=== PATIENT | female | born 1970 | race African-American/Black ===

== ENCOUNTER 2018-01-15 19:34 | Inpatient (IN) | payer OTHER, MEDICAID ==
[~2018-01-15] VITALS: Ht 165.1 cm; Wt 144.5 kg
[~2018-01-15 19:34] MED LIST: CYCL5TAB; HYDR-2595; TRIA25CA PO; [UNRECOGNIZED DRUG - OTHER] PO
[2018-01-15 21:27] LABS: Basophils # (auto) 0.1 uL; Eosinophils # (auto) 0 uL; Eosinophils % (auto) 0.2 % (0.0-7.0); Hematocrit 42.9 % (36.0-46.0); Hemoglobin 14.4 g/dL (12.2-16.2); Lymphocytes # (auto) 1.8 uL; Lymphocytes % (auto) 20.9 % (10.0-50.0); Mean Corpuscular Hemoglobin 30.3 pg (28.0-32.0); Mean Corpuscular Hgb Conc. 33.6 g/dL (32.0-36.0); Mean Corpuscular Volume 90.1 fL (80.0-100.0); Monocytes # (auto) 0.4 uL; Monocytes % (auto) 4.8 % (0.0-12.0); Neutrophils # (auto) 6.3 uL; Neutrophils % (auto) 73.1 % (37.0-80.0); Nucleated Red Blood Cells % 0.1 %; Platelet Count (auto) 331 10^3/uL (140-450); Red Blood Cells 4.76 10^6/uL (4.0-5.20); Red Cell Distribution Width 13.5 % (11.8-14.3); White Blood Cell 8.6 10^3/uL (4.4-10.8)
[2018-01-15 21:39] LABS: Alanine Aminotransferase 43 U/L (13-56); Albumin 3.5 g/dL (3.4-5.0); Anion Gap 9 (5-15); Aspartate Aminotransferase 23 U/L (15-37); BUN/Creatinine Ratio 9.7; Blood Urea Nitrogen 7 mg/dL (7-18); Calcium 8.9 mg/dL (8.5-10.1); Carbon Dioxide 25 mmol/L (21-32); Chloride 104 mmol/L (98-107); GFR African American 112 mL/min; GFR Non-African American 92 mL/min; Glucose 102 mg/dL (74-106); Magnesium 1.9 mg/dL (1.6-2.6); Potassium 4.3 mmol/L (3.5-5.1); Sodium 138 mmol/L (136-145)
[2018-01-15 21:44] LABS: Alkaline Phosphatase 79 U/L (45-117); Bilirubin, Total 0.7 mg/dL (0.2-1.0)
[2018-01-15 21:53] LABS: INR 0.95 (0.9-1.15); Partial Thromboplastin Time 34.1 sec (23.78-33.04); Prothrombin Time 10.2 sec (9.27-12.13)
[2018-01-16] MEDS ORDERED: SODIUM CHLORIDE 0.9% 1,000 ML IV ONE (01:02)
[2018-01-16] MEDS ORDERED: GASTROGRAFIN 30 ML SOL ONE (01:12)
[2018-01-16] MEDS ORDERED: ONDANSETRON HCL 4 MG/2 ML VIAL IV ONE (01:15)
[2018-01-16] MEDS ORDERED: ASPirin 81 mg TAB PO ONE (01:15)
[2018-01-16 01:48] LABS: Amylase 41 U/L (25-115); Lipase 37 U/L (73-393)
[2018-01-16] MEDS ORDERED: NALBUPHINE HCL 10 MG/1ml INJECTION IV ONE (02:15)
[2018-01-16] MEDS ORDERED: MORPHINE SULFATE 4 MG/ML SYR/VIAL IV ONE (02:45)
[2018-01-16 04:11] LABS: Urine Bacteria FEW /hpf (None Seen); Urine Blood Negative /uL (Negative); Urine Specific Gravity 1.026 (1.001-1.035); Urine WBC <1 /hpf (0 - 5)
[2018-01-16] MEDS ORDERED: HYDROmorphone HCL 2 MG/ML VL IV ONE (05:15)
[2018-01-16] MEDS ORDERED: PANTOPRAZOLE 40 MG/10 ML VIAL IV ONE ×2 (05:15→14:45)
[2018-01-16] MEDS ORDERED: ACETAMINOPHEN 325 MG TAB PO PRN (06:15)
[2018-01-16] MEDS ORDERED: NITROGLYCERIN 0.4 MG SL TAB SL PRN (06:15)
[2018-01-16] MEDS ORDERED: MORPHINE SULF INJ 2 MG/ML SYRINGE 1ML IV PRN (06:15)
[2018-01-16] MEDS ORDERED: ATORVASTATIN 20 MG TAB PO ONE (06:15)
[2018-01-16] MEDS ORDERED: TEMAZEPAM 15 MG CAP PO PRN (06:15)
[2018-01-16 08:29] LABS: Cholesterol 136 mg/dL (< 200); HDL Cholesterol 53 mg/dL (40-59); LDL Cholesterol 80 mg/dL (< 100); Triglycerides 85 mg/dL (< 150)
[2018-01-16] MEDS ORDERED: CARV6.25 PO (08:51)
[2018-01-16] MEDS ORDERED: OMEP20TA PO (08:52)
[2018-01-16 09:00] VITALS: BP 159/84
[2018-01-16] MEDS: ENOXAPARIN SOD 40 MG/0.4 ML SYRINGE SC SCH (09:04)
[2018-01-16] MEDS: HCTZ 25 MG TAB PO SCH (09:06)
[2018-01-16] MEDS: HYDROcodone-ACET 5/325MG TAB PO PRN ×3 (09:12→21:40)
[2018-01-16] MEDS ORDERED: FAMOTIDINE 20 MG TAB PO SCH (10:00)
[2018-01-16] MEDS ORDERED: ASPirin 81 mg TAB PO SCH (10:00)
[2018-01-16] MEDS ORDERED: OPTISON 3ml Vial for INJ IV ONE (11:08)
[2018-01-16] MEDS: NALBUPHINE HCL 10 MG/1ml INJECTION IV PRN ×2 (12:02→18:19)
[2018-01-16] MEDS: ONDANSETRON HCL 4 MG/2 ML VIAL IV PRN (12:03)
[2018-01-16 13:00] VITALS: BP 155/92
[2018-01-16] MEDS ORDERED: PANTOPRAZOLE 40 MG TAB PO ONE (13:00)
[2018-01-16] MEDS: PANTOPRAZOLE 40 MG TAB PO ONE ×2 (13:24→15:24)
[2018-01-16] MEDS: ALPRAZolam 0.5 MG TAB PO PRN (15:24)
[2018-01-16 17:00] VITALS: BP 157/97
[2018-01-16] MEDS: SUCRALFATE 1 GM/10 ML ORAL SUSP PO SCH ×2 (17:18→21:41)
[2018-01-16] MEDS: ATORVASTATIN 20 MG TAB PO SCH (21:40)
[2018-01-16] MEDS: PANTOPRAZOLE 40 MG/10 ML VIAL IV SCH (21:41)
[2018-01-16] MEDS: CARVEDILOL 3.125 MG TAB PO SCH (21:41)
[2018-01-16 22:00] VITALS: BP 142/103
[2018-01-17] MEDS: HYDROcodone-ACET 5/325MG TAB PO PRN ×5 (03:54→23:00)
[2018-01-17] MEDS: NALBUPHINE HCL 10 MG/1ml INJECTION IV PRN ×3 (05:48→22:05)
[2018-01-17 06:22] LABS: Basophils # (auto) 0.1 uL; Basophils % (auto) 0.8 % (0.0-2.0); Eosinophils # (auto) 0 uL; Eosinophils % (auto) 0.4 % (0.0-7.0); Hematocrit 40.2 % (36.0-46.0); Hemoglobin 13.5 g/dL (12.2-16.2); Lymphocytes % (auto) 22.4 % (10.0-50.0); Mean Corpuscular Hemoglobin 30.4 pg (28.0-32.0); Mean Corpuscular Hgb Conc. 33.6 g/dL (32.0-36.0); Mean Corpuscular Volume 90.4 fL (80.0-100.0); Monocytes # (auto) 0.7 uL; Monocytes % (auto) 7.5 % (0.0-12.0); Neutrophils # (auto) 6.1 uL; Neutrophils % (auto) 68.9 % (37.0-80.0); Platelet Count (auto) 268 10^3/uL (140-450); Red Blood Cells 4.45 10^6/uL (4.0-5.20); Red Cell Distribution Width 13.1 % (11.8-14.3); White Blood Cell 8.9 10^3/uL (4.4-10.8)
[2018-01-17] MEDS: ALPRAZolam 0.5 MG TAB PO PRN ×2 (06:28→18:34)
[2018-01-17] MEDS: SUCRALFATE 1 GM/10 ML ORAL SUSP PO SCH ×4 (06:29→22:04)
[2018-01-17] MEDS: ONDANSETRON HCL 4 MG/2 ML VIAL IV PRN ×3 (06:34→22:04)
[2018-01-17 06:46] LABS: Potassium 3.8 mmol/L (3.5-5.1)
[2018-01-17 06:47] LABS: Albumin 3.2 g/dL (3.4-5.0); BUN/Creatinine Ratio 12.3; Calcium 8.5 mg/dL (8.5-10.1); Magnesium 2.4 mg/dL (1.6-2.6); Total Protein 7.2 g/dL (6.4-8.2)
[2018-01-17 08:00] VITALS: BP 150/93
[2018-01-17 09:00] VITALS: BP 150/93
[2018-01-17] MEDS: PANTOPRAZOLE 40 MG/10 ML VIAL IV SCH ×2 (09:51→22:04)
[2018-01-17] MEDS: ENOXAPARIN SOD 40 MG/0.4 ML SYRINGE SC SCH (09:52)
[2018-01-17] MEDS: HCTZ 25 MG TAB PO SCH (09:53)
[2018-01-17] MEDS: CARVEDILOL 3.125 MG TAB PO SCH ×2 (09:54→22:04)
[2018-01-17] MEDS: ASPirin 81 mg TAB PO SCH (09:55)
[2018-01-17] MEDS ORDERED: PANTOPRAZOLE 40 MG TAB PO SCH (10:00)
[2018-01-17 21:37] VITALS: BP 126/85
[2018-01-17] MEDS: ATORVASTATIN 20 MG TAB PO SCH (22:04)
[2018-01-18] MEDS: HYDROcodone-ACET 5/325MG TAB PO PRN ×4 (03:57→17:26)
[2018-01-18 05:04] VITALS: BP 143/79
[2018-01-18] MEDS: NALBUPHINE HCL 10 MG/1ml INJECTION IV PRN (06:23)
[2018-01-18] MEDS: ONDANSETRON HCL 4 MG/2 ML VIAL IV PRN (06:23)
[2018-01-18] MEDS: SUCRALFATE 1 GM/10 ML ORAL SUSP PO SCH ×4 (07:28→21:32)
[2018-01-18 08:51] VITALS: BP 135/78
[2018-01-18 08:53] LABS: Basophils # (auto) 0.1 uL; Basophils % (auto) 1.1 % (0.0-2.0); Eosinophils # (auto) 0.1 uL; Eosinophils % (auto) 0.5 % (0.0-7.0); Hematocrit 40.4 % (36.0-46.0); Hemoglobin 13.3 g/dL (12.2-16.2); Lymphocytes # (auto) 2.4 uL; Lymphocytes % (auto) 23.5 % (10.0-50.0); Mean Corpuscular Hemoglobin 29.7 pg (28.0-32.0); Monocytes # (auto) 0.7 uL; Monocytes % (auto) 7.1 % (0.0-12.0); Neutrophils # (auto) 6.9 uL; Neutrophils % (auto) 67.8 % (37.0-80.0); Nucleated Red Blood Cells % 0.1 %; Platelet Count (auto) 291 10^3/uL (140-450); Red Blood Cells 4.48 10^6/uL (4.0-5.20); Red Cell Distribution Width 13.3 % (11.8-14.3); White Blood Cell 10.1 10^3/uL (4.4-10.8)
[2018-01-18 09:06] LABS: INR 0.99 (0.9-1.15); Partial Thromboplastin Time 32.9 sec (23.78-33.04); Prothrombin Time 10.6 sec (9.27-12.13)
[2018-01-18 09:14] LABS: Albumin 3.3 g/dL (3.4-5.0); BUN/Creatinine Ratio 11.4; Bilirubin, Total 0.9 mg/dL (0.2-1.0); Calcium 8.4 mg/dL (8.5-10.1); Potassium 3.5 mmol/L (3.5-5.1); Total Protein 7.6 g/dL (6.4-8.2)
[2018-01-18] MEDS: PANTOPRAZOLE 40 MG/10 ML VIAL IV SCH ×2 (09:16→21:31)
[2018-01-18] MEDS: ALPRAZolam 0.5 MG TAB PO PRN (09:16)
[2018-01-18] MEDS: ASPirin 81 mg TAB PO SCH (09:16)
[2018-01-18] MEDS: HCTZ 25 MG TAB PO SCH (09:17)
[2018-01-18] MEDS: CARVEDILOL 3.125 MG TAB PO SCH ×2 (09:17→21:32)
[2018-01-18] MEDS: ENOXAPARIN SOD 40 MG/0.4 ML SYRINGE SC SCH (09:17)
[2018-01-18 13:00] VITALS: BP 155/98
[2018-01-18] MEDS: MORPHINE SULF INJ 2 MG/ML SYRINGE 1ML IV PRN ×2 (14:17→22:49)
[2018-01-18 16:54] VITALS: BP 149/91
[2018-01-18] MEDS: ATORVASTATIN 20 MG TAB PO SCH (21:33)
[2018-01-18 21:52] VITALS: BP 127/81
[2018-01-19] MEDS: MORPHINE SULF INJ 2 MG/ML SYRINGE 1ML IV PRN (04:10)
[2018-01-19 04:38] VITALS: BP 130/86
[2018-01-19] MEDS: SUCRALFATE 1 GM/10 ML ORAL SUSP PO SCH ×2 (06:00→11:25)
[2018-01-19] MEDS ORDERED: LIDOCAINE VISCOUS 2% 15ML UD ONE (08:06)
[2018-01-19] MEDS ORDERED: SODIUM CHLORIDE LOCK 10 ML ONE (08:06)
[2018-01-19] MEDS ORDERED: diphenhdrAMINE HCL 50 MG/1 ML VL ONE (08:07)
[2018-01-19 09:16] VITALS: BP 146/86
[2018-01-19] MEDS: HCTZ 25 MG TAB PO SCH (09:57)
[2018-01-19] MEDS: ASPirin 81 mg TAB PO SCH (09:57)
[2018-01-19] MEDS: ENOXAPARIN SOD 40 MG/0.4 ML SYRINGE SC SCH (09:57)
[2018-01-19] MEDS: PANTOPRAZOLE 40 MG/10 ML VIAL IV SCH (09:57)
[2018-01-19] MEDS: CARVEDILOL 3.125 MG TAB PO SCH (09:57)
[2018-01-19] MEDS: fentaNYL CITRATE 100 MCG/2 ML VL ONE ×2 (10:29→10:33)
[2018-01-19] MEDS: MIDAZOLAM HCL 5 MG/ML-1ML VIAL ONE ×2 (10:29→10:33)
[2018-01-19] MEDS ORDERED: PANT40TA2 PO (11:26)
[2018-01-19] MEDS ORDERED: SUCR1TAB38 PO (11:28)
[2018-01-19] MEDS: HYDROcodone-ACET 5/325MG TAB PO PRN (12:41)
[2018-01-19 12:42] VITALS: BP 129/81
[2018-01-19 14:22] VITALS: BP 129/81
== END 2018-01-19 16:05 | disposition home or self-care (01) | DRG 392 ==
LOC: ER 19:34 → TELE 19:35 → TELE-WESTW 01-16 07:40
PROVIDERS: ADMIT Nurse Practitioner; ATTEND Internal Medicine
PROC: 0DB68ZX Excision of Stomach, Via Natural or Artificial Opening Endoscopic, Diagnostic (ICD-10-PCS; principal; 2018-01-19 10:21)
DX: K21.9 Gastro-esophageal reflux disease without esophagitis (principal); Z68.43 Body mass index [BMI] 50.0-59.9, adult; E66.01 Morbid (severe) obesity due to excess calories; I10 Essential (primary) hypertension; F32.9 Major depressive disorder, single episode, unspecified; F41.9 Anxiety disorder, unspecified; Z83.3 Family history of diabetes mellitus; Z90.49 Acquired absence of other specified parts of digestive tract; Z98.84 Bariatric surgery status; Z88.8 Allergy status to other drugs, medicaments and biological substances; Z87.11 Personal history of peptic ulcer disease
CPT/HCPCS: 36415; 43239; 71045; 74176; 80053; 80061; 81001; 82150; 83690; 83735; 83880; 84443; 84484; 84702; 85025; 85379; 85610; 85730; 87045; 87081; 87493; 87899; 93005; 93306; 94761; 96361; 96374; 96375; A6257; C9113; J2250; J2405; Q9956